=== PATIENT | female | born 1970 | race Caucasian/White ===

== ENCOUNTER 2022-10-12 06:53 | Emergency (ER) | payer OTHER ==
[2022-10-12] MEDS ORDERED: TORAdol 10 MG TABLET PO ONE (07:45)
--- NOTE | 2022-10-12 07:46 | ERPHSYRPT ---
- History of Present Illness Time Seen by Provider: 10/12/22 07:42 Source: patient Exam Limitations: no limitations Patient Subjective Stated Complaint: Pt states "I lifted a patient the other day and they right side of my neck I felt a cramp and it is getting worse into my shoulder." Triage Nursing Assessment: PT presented alert and oriented X 3, skin pwd. Pt ambulates with an upright steady gait, able to speak in clear full sentences. Pt in no apaprent respiratory distress. Pt right posterior scapula and neck Physician History: Patient is a 52-year-old female presents to our ED for evaluation of right shoulder pain which she has had for 2 days. 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 Patient feels a pain radiating from midline to her right shoulder. Patient believes that she has a primary neck problem and is requesting a CT of the cervical spine. Patient has been taken both Tylenol and Motrin for pain control. Patient feels that it is not helping much. She has not been wearing a sling. No upper extremity weakness. No numbness or tingling. No blunt trauma or falls. No other complaints. Symptoms are mild to moderate in intensity. Pain worse with abduction of her right shoulder. Pain not specifically worse with shoulder flexion or extension. Patient voices no other complaints or concerns at this time. Portions of this note were created with voice recognition technology. There may be grammatical, spelling, punctuation or sound alike errors Occurred: days ago (2 days ago) Method of Injury: other (Lifting a patient) Quality: constant Severity of Pain-Max: moderate Severity of Pain-Current: mild Extremities Pain Location: shoulder: right Modifying Factors: Improves With: other (Abduction of the right shoulder reproduces pain.) Associated Symptoms: none Allergies/Adverse Reactions: ciprofloxacin [From Cipro] Allergy (Severe, Verified 10/12/22 07:06) anaphylaxis morphine Allergy (Severe, Verified 10/12/22 07:06) anaphylaxis Home Medications: Cyclobenzaprine HCl 10 mg [Cyclobenzaprine 10 MG] 10 mg PO DAILY 10/12/22 [History] Hx Tetanus, Diphtheria Vaccination/Date Given: Yes Hx Influenza Vaccination/Date Given: No Hx Pneumococcal Vaccination/Date Given: No Immunizations Up to Date: Yes Travel Risk - International Travel Have you traveled outside of the country in past 3 weeks: No - Coronavirus Screening Are you exhibiting any of the following symptoms?: No Close contact with a COVID-19 positive Pt in past 14-21 Days: No - Vaccine Status Have you recieved a Covid-19 vaccination: No - Review of Systems Constitutional: No Symptoms, No Fever, No Chills Eyes: No Symptoms Ears, Nose, & Throat: No Symptoms Respiratory: No Symptoms, No Cough, No Dyspnea Cardiac: No Chest Pain, No Edema, No Syncope Abdominal/Gastrointestinal: No Abdominal Pain, No Nausea, No Vomiting, No Diarrhea Genitourinary Symptoms: No Dysuria Musculoskeletal: No Back Pain, No Neck Pain Skin: No Rash Neurological: No Dizziness, No Focal Weakness, No Sensory Changes Psychological: No Symptoms Endocrine: No Symptoms All Other Systems: Reviewed and Negative - Past Medical History Pertinent Past Medical History: Yes Other Medical History: [place] - Past Surgical History Past Surgical History: Yes Other Surgical History: breast augmentation. nasal reconstruction. dorothy. lithotripsy - Social History Smoking Status: Never smoker Exposure to second hand smoke: No Drug Use: none Patient Lives Alone: Yes - Nursing Vital Signs Nursing Vital Signs: Initial Vital Signs Temperature 96.8 F 10/12/22 06:59 Pulse Rate 88 10/12/22 06:59 Respiratory Rate 20 10/12/22 06:59 Blood Pressure 136/60 10/12/22 06:59 Pain Scale Pain Intensity 7 - Physical Exam General Appearance: no apparent distress, alert Neck Exam: non-tender, supple, other (Some tenderness to palpation midline near C6-7. Increased muscle tone along the cervical spine paraspinal musculature more so at the right paraspinal muscles and upper trapezius) Cardiovascular/Respiratory Exam: chest non-tender, normal breath sounds, regular rate/rhythm, no respiratory distress Abdominal Exam: non-tender, No guarding Back Exam: normal inspection, No vertebral tenderness Shoulder Exam: normal inspection, limited ROM (Abduction range of motion limited due to soft tissue tenderness at the upper trapezius musculature.) Elbow/Forearm Exam: normal inspection, non-tender, no evidence of injury, normal ROM Wrist Exam: normal inspection, non-tender, no evidence of injury, normal ROM Hand Exam: normal inspection, non-tender, no evidence of injury, normal ROM Neuro/Tendon Exam: normal sensation, normal motor functions Mental Status Exam: alert, oriented x 3, cooperative Skin Exam: normal color, warm, dry SpO2 Interpretation: normal SpO2: 97 O2 Delivery: Room Air - Course Nursing assessment & vital signs reviewed: Yes Ordered Tests: Active Orders 24 hr Category Date Time Status CERVICAL SPINE WO CONTRAST [CT] Stat Exams 10/12/22 07:36 Completed Medication Summary Discontinued Medications Generic Name Dose Route Start Last Admin Trade Name Alexandre PRN Reason Stop Dose Admin Ketorolac Tromethamine 10 mg 10/12/22 07:45 10/12/22 07:45 Ketorolac Tromethamine 10 Mg Tablet PO 10/12/22 07:46 10 mg NOW ONE Administration - Progress Progress: improved Progress Note: Patient is a 52-year-old female presents to our ED for evaluation of a 2-day h istory of right shoulder pain radiating to her upper arm. Patient reportedly injured her shoulder while helping a patient. Physical exam reveals tenderness along the insertion point of the upper trapezius musculature down into the lower trapezius and lateral insertion points. Pain worse with abduction of the right shoulder. Extremity otherwise neurovascular intact distally. Compartments are soft. Cap refill less than 2 seconds. Patient received Toradol p.o. for pain control. Patient also received a right upper extremity shoulder sling. CT scan reveals straightening of the lordotic curve consistent with a cervical paraspinal muscle strain. No indication for further work-up. Will discharge home. Patient was given contact information for follow-up. She voices no other complaints or concerns at this time. Portions of this note were created with voice recognition technology. There may be grammatical, spelling, punctuation or sound alike errors Complexity of problem addressed is moderate, new diagnosis with uncertain prognosis Complex of data reviewed and analyzed is limited. CT cervical spine ordered. Report reviewed. Risk of complication and or risk morbidity/patient mortality is moderate. Patient received an oral dose of Toradol in our ED. A prescription for the same was forwarded to patient's pharmacy. Patient will be discharged home. Follow-up information provided. Vital stable. Time spent to discharge patient is approximately 10 to 15 minutes. Plan of care established for shared decision making. Patient voices no other complaints or concerns at this time. Portions of this note were created with voice recognition technology. There may be grammatical, spelling, punctuation or sound alike errors 10/12/22 08:47 Counseled pt/family regarding: diagnosis, need for follow-up, rad results - Departure Departure Disposition: Home Clinical Impression: Shoulder strain, Cervical paraspinal muscle spasm Condition: Stable Critical Care Time: No Referrals: DOCTOR,NO FAMILY [Primary Care Provider] - Follow up/PCP as directed ELIJAH RAMEY MD [ACTIVE STAFF] - Follow up/PCP as directed Additional Instructions: Discharge/Care Plan FRANCIS BAKER was seen on 10/12/22 in the Emergency Room. The patient was counseled regarding Diagnosis,Lab results, Imaging studies, need for follow up and when to return to the Emergency Room. Prescriptions given: Discharge Note I have spoken with the patient and/or caregivers. I have explained the patient's condition, diagnosis and treatment plan based on the information available to me at this time. I have answered the patient's and/or caregiver's questions and addressed any concerns. The patient and/or caregivers have as good understanding of the patient's diagnosis, condition and treatment plan as can be expected at this point. The vital signs have been stable. The patient's condition is stable and appropriate for discharge from the emergency department. The patient will pursue further outpatient evaluation with the primary care physician or other designated or consulting physician as outlined in the discharge instructions. The patient and/or caregivers are agreeable to this plan of care and follow-up instructions have been explained in detail. The patient and/or caregivers have received these instruction. The patient/and or caregivers are aware that any significant change in condition or worsening of symptoms should prompt an immediate return to this or the closest emergency department or call 911. Prescriptions: Ketorolac Trometh 10 mg Tab [TORAdol 10 MG TABLET] 10 mg PO TID 5 Days #15 tablet
[2022-10-12 07:48] VITALS: O2SAT 97
[2022-10-12 07:49] VITALS: BP 132/57; PULSE 86
--- NOTE | 2022-10-12 08:40 | XRAY ---
Indication: Pain/spasm following lifting injury. Multiple contiguous axial images obtained through the cervical spine. Sagittal and coronal reformatted images obtained. Comparison: None Axial images negative for acute fracture, suspicious bony lesions, or spinal canal stenosis. Anatomic variant for nonunited posterior arch C1. Facets are symmetric. Sagittal and coronal reformatted images demonstrates lordotic straightening, positional versus paraspinal spasm. Vertebral body heights/disc spaces maintained. No acute compression fracture, subluxation, or jumped facet. Normal appearing craniocervical junction. Visualized noncontrasted soft tissues including base of brain and lung apices are unremarkable. Impression: Cervical lordotic straightening, positional versus paraspinal spasm. Remaining CT cervical spine is normal.
== END 2022-10-12 08:45 | disposition home or self-care (01) ==
LOC: ED 06:53
DX: S46.911A Strain of unspecified muscle, fascia and tendon at shoulder and upper arm level, right arm, initial encounter (principal); M62.838 Other muscle spasm; X50.0XXA Overexertion from strenuous movement or load, initial encounter; Y93.F2 Activity, caregiving, lifting; Y99.0 Civilian activity done for income or pay; Z79.899 Other long term (current) drug therapy; Z28.310 Unvaccinated for COVID-19
CPT/HCPCS: 72125; 99283; A9270-GY